=== PATIENT | female | born 1970 | race Caucasian/White ===

== ENCOUNTER 2018-01-16 06:18 | Inpatient (IN) ==
[2018-01-16] MEDS ORDERED: ceFAZolin 2 GM Premix Inj 2 GM/50 ML PIGGYBACK IV.SIG PRN (06:42)
[2018-01-16] MEDS ORDERED: Citric Acid/Sodium Citrate Liq 30 ML UDC PO SCH ×2 (06:45)
--- NOTE | 2018-01-16 06:52 | P.OBGPN ---
queried PDMP and reviewed report
[2018-01-16] MEDS ORDERED: ceFAZolin 2 GM Premix Inj 2 GM/50 ML PIGGYBACK IV.SIG SCH (07:00)
[2018-01-16 07:12] LABS: Baso % (Auto) 0.2 % (0.0-2.0); Eos # (Auto) 0.1 th/mm3 (0.0-0.4); Eos % (Auto) 0.7 % (0.0-4.0); Hematocrit 33.2 % (35.0-46.0); Hemoglobin 11.5 gm/dL (11.6-15.3); Lymph # (Auto) 1.3 th/mm3 (1.0-4.8); Mean Corpuscular HGB Conc 34.7 % (32.0-36.0); Mean Corpuscular Hemoglobin 31.8 pg (27.0-34.0); Mean Corpuscular Volume 91.7 fL (80.0-100.0); Mean Platelet Volume 7.3 fL (7.0-11.0); Mono # (Auto) 0.9 th/mm3 (0.0-0.9); Neut # (Auto) 7.7 th/mm3 (1.8-7.7); Neut % (Auto) 77.1 % (16.0-70.0); Platelet Count 307 th/mm3 (150-450); Red Blood Count 3.62 mil/mm3 (4.00-5.30); Red Cell Distribution Width 15.3 % (11.6-17.2)
[2018-01-16 07:16] LABS: Bacteria,Urine Occasional /hpf; Bilirubin,Urine Negative (Negative); Color,Urine Amber (Yellw/Straw); Glucose,Urine (UA) Negative (Negative); Leukocyte Esterase,Urine Moderate (Negative); Mucus,Urine Few /lpf (Occasional); Nitrite,Urine Negative (Negative); Specific Gravity,Urine 1.023 (1.002-1.035); Squamous Epithelial Cell,Urine 30 /hpf (0-5)
[2018-01-16 07:17] LABS: Amphetamine Screen,Urine Neg (Neg); Barbiturate Screen,Urine Neg (Neg); Cannabinoid Screen,Urine Neg (Neg); Clarity,Urine Hazy (Clear); Cocaine Screen,Urine Neg (Neg)
[2018-01-16 07:24] LABS: Opiate Screen,Urine Neg (Neg)
[2018-01-16 07:32] LABS: Alanine Aminotransferase 15 U/L (10-53); Albumin 2.4 g/dL (3.4-5.0); Anion Gap 11 meq/L (5-15); Aspartate Aminotransferase 17 U/L (15-37); Blood Urea Nitrogen 10 mg/dL (7-18); Calcium 8.4 mg/dL (8.5-10.1); Carbon Dioxide 20.3 meq/L (21.0-32.0); Chloride 108 meq/L (98-107); Glomerular Filtration Rate 88 mL/min (>89); Glucose,Random 110 mg/dL (74-106); Potassium 4.2 meq/L (3.5-5.1); Sodium 139 meq/L (136-145)
[2018-01-16 07:34] LABS: Alkaline Phosphatase 120 U/L (45-117); Total Protein 7.2 g/dL (6.4-8.2)
[2018-01-16] MEDS ORDERED: Morphine Sulfate PF Inj 5 MG/10 ML Ampul ONE (07:40)
--- NOTE | 2018-01-16 08:03 | P.OP ---
Date of procedure: 01/16/18 Surgeon: Anthony Siegel MD Operation and Findings: Preoperative diagnosis: 1. Intrauterine at 37 weeks 0 days 2. Chronic hypertension with superimposed preeclampsia 3. History of multiple myomectomies 4. Advanced maternal age 5. Hypothyroidism Postop diagnosis 1. Same as above status post primary Procedure 1. Primary low transverse section Surgeon Dr. Anthony Siegel Right Of Way Maintenance Supervisor: [place] labor and delivery scrub staff Findings: 1. Viable male at 0829, Apgars 8 and 9, weight 3125 g. 2. Intact placenta 3 vessel cord 0830 3. No intra-abdominal adhesions, normal appearing uterus, small atrophic left ovary but otherwise normal, normal left fallopian tube, right ovary somewhat enlarged but normal-appearing, normal right fallopian tube. Anesthesia: Spinal Specimen: Placenta to disposal Estimated blood loss: 500 cc Fluid replacement: 1800 cc lactated Ringer's and Pitocin Urine output: 100 cc clear DVT prophylaxis: Sequential compression devices throughout the case Antibiotics: 2 g Ancef preoperatively Counts: correct x2 Time out done: yes Disposition: Stable to PACU then Indications: Patient is a 48-year-old who was diagnosed with superimposed preeclampsia earlier this week based on her history of myomectomies she was dispositioned for a . Description of procedure: The patient was taken to the operating room and after spinal anesthesia was performed she was positioned and supine position with arms out in a left lateral tilt, the abdomen was prepped and draped in sterile fashion, a Pfannenstiel incision was made and carried down sharply to the fascia which was nicked on either side of the midline, this was extended bilaterally, the fascia was elevated superiorly and inferiorly and the rectus muscles were sharply dissected off the overlying fascia, the peritoneum was entered digitally and retracted laterally. A bladder flap was developed with Metzenbaum scissors at the lower uterine segment, the hysterotomy was made in the lower uterine segment with a scalpel in a curvilinear fashion, it was extended cephalad-caudad manner, I inserted my hand into the hysterotomy and the head was elevated to the hysterotomy and with fundal pressure was delivered. With gentle downward and upward guidance the anterior and posterior shoulder was delivered, followed by the torso and lower extremities with ease, the infant had spontaneous cry the cord was clamped and cut, the was handed off to nursing staff after delayed cord clamping was allowed. Pitocin was bolused and with uterine massage and cord traction the placenta was delivered, uterus was cleared of clot and debris, the uterus was exteriorized and the hysterotomy was closed with 2 layers, first with 0 locking Vicryl, and the second with imbricating 0 Vicryl. The abdomen and hysterotomy were irrigated , inspected, and found to be hemostatic. The rectus muscles were loosely reapproximated with interrupted 0 chromic. The fascia was closed from left to right with 0 running delayed absorbable suture. The subcutaneous tissue was irrigated, inspected, hemostasis was appreciated, the space was closed with running 2-0 Monocryl. The skin was closed with 3-0 Monocryl in a subcuticular fashion and then a dressing was applied and the patient tolerated procedure well was transferred to PACU.
[2018-01-16] MEDS ORDERED: Non-Formulary Drug (Levothyroxine [Levothyroxine] 137 MCG) PO SCH (09:00)
[2018-01-16] MEDS ORDERED: Acetaminophen 325 MG Tablet PO PRN (09:25)
[2018-01-16] MEDS ORDERED: Morphine Sulfate Inj 8 MG/ML Vial IV.PUSH PRN (09:25)
[2018-01-16] MEDS ORDERED: Oxytocin 30 Units/500ml Premix 30 UNITS/500 ML BAG IV.SIG ONE (09:25)
[2018-01-16] MEDS ORDERED: Ketorolac Inj 30 MG/ML (IVP) Vial IV.PUSH ONE ×2 (10:00→11:00)
[2018-01-16] MEDS ORDERED: Oxytocin 30 Units/500ml Premix 30 UNITS/500 ML BAG ONE (10:21)
[2018-01-16] MEDS: Prenatal Vit/Ca/Iron/Folic Acid Tablet PO SCH (10:35)
[2018-01-16] MEDS: Levothyroxine 112 MCG Tablet PO SCH (10:35)
[2018-01-16] MEDS ORDERED: Naloxone Inj 0.4 MG/ML Vial IV.PUSH PRN (11:36)
[2018-01-16] MEDS ORDERED: Oxytocin 30 Units/500ml Premix 30 UNITS/500 ML BAG IV.SIG PRN (14:25)
[2018-01-16] MEDS: Ketorolac Inj 30 MG/ML (IVP) Vial IV.PUSH SCH ×2 (17:23→23:00)
[2018-01-17] MEDS: Ketorolac Inj 30 MG/ML (IVP) Vial IV.PUSH SCH ×2 (05:15→12:13)
[2018-01-17 05:22] LABS: Baso % (Auto) 0.4 % (0.0-2.0); Eos # (Auto) 0.1 th/mm3 (0.0-0.4); Eos % (Auto) 0.5 % (0.0-4.0); Hematocrit 27.8 % (35.0-46.0); Hemoglobin 9.7 gm/dL (11.6-15.3); Lymph # (Auto) 1.8 th/mm3 (1.0-4.8); Lymph % (Auto) 14.5 % (9.0-44.0); Mean Corpuscular HGB Conc 34.9 % (32.0-36.0); Mean Corpuscular Volume 91.8 fL (80.0-100.0); Mean Platelet Volume 7.2 fL (7.0-11.0); Mono # (Auto) 0.9 th/mm3 (0.0-0.9); Neut # (Auto) 9.9 th/mm3 (1.8-7.7); Neut % (Auto) 77.6 % (16.0-70.0); Platelet Count 294 th/mm3 (150-450); Red Blood Count 3.03 mil/mm3 (4.00-5.30); Red Cell Distribution Width 15.2 % (11.6-17.2); White Blood Count 12.8 th/mm3 (4.0-11.0)
[2018-01-17] MEDS: Levothyroxine 112 MCG Tablet PO SCH (06:12)
--- NOTE | 2018-01-17 08:11 | P.PNOB ---
Subjective Post op day: 1 Interval history: Pain well controlled w meds. Passed some flatus. Patricia po. Voided already. Starting to ambulated. Objective Vital Signs/I&O: Vital Signs 01/16/18 09:28 01/16/18 09:45 01/16/18 10:00 Temperature Pulse Rate 84 77 78 Respiratory Rate 18 Blood Pressure 112/64 128/68 116/63 01/16/18 10:15 01/16/18 10:30 01/16/18 11:00 Temperature Pulse Rate 74 72 79 Respiratory Rate 18 Blood Pressure 129/67 140/80 142/92 H 01/16/18 19:41 01/16/18 23:42 01/17/18 04:00 Temperature 97.9 F 98.3 F 98.3 F Pulse Rate 73 65 67 Respiratory Rate 18 Blood Pressure 136/77 135/71 112/65 Intake & Output 01/16/18 01/17/18 01/17/18 18:59 06:59 18:59 Weight 99 kg Other: Weight On Admission 99 kg Result Diagrams: 01/17/18 05:03 01/16/18 06:55 Objective Remarks: GENERAL: Well-nourished, well-developed patient. CARDIOVASCULAR: Regular rate and rhythm without murmurs, gallops, or rubs. RESPIRATORY: Breath sounds equal bilaterally. No accessory muscle use. ABDOMEN/GI: Abdomen soft, non-tender, bowel sounds present. Incision: Clean, dry and intact. Fundus: Firm, non-tender at umbilicus. GENITOURINARY: Light to moderate bleeding. EXTREMITIES: No cyanosis or edema, non-tender, without signs of DVT. Medications and IVs: Active Medications Acetaminophen (Tylenol) 650 mg PO Q6H PRN PRN Reason: PAIN SCALE 1 TO 2 Citric Acid/Sodium Citrate (Sodium Citrate/Citric Acid Liq) 30 ml PO MOLASSES AND CARAMEL OPERATOR [facility] Stop: 01/20/18 06:44 Last Admin: 01/16/18 07:55 Dose: 30 ml Diphenhydramine HCl (Benadryl) 50 mg PO Q6H PRN PRN Reason: MILD TO MODERATE ITCHING Stop: 01/17/18 08:10 Diphenhydramine HCl (Benadryl Inj) 25 mg IV.PUSH Q6H PRN PRN Reason: MILD TO MODERATE ITCHING Stop: 01/17/18 08:10 Diphtheria/Pertussis/Tetanus Vacc (Boostrix Vaccine Inj) 0.5 ml IM .ONCE ONE Stop: 01/17/18 16:01 Lactated Ringer's (Lr 1000 Ml Inj) 1,000 mls @ 150 mls/hr IV.CONT .Q6H40M ON LICENSE OF [facility] Last Admin: 01/16/18 07:54 Dose: 150 mls/hr Lactated Ringer's (Lr 1000 Ml Inj) 1,000 mls @ 100 mls/hr IV.CONT .Q10H ON LICENSE OF [facility] Stop: 01/17/18 10:24 Oxytocin (Pitocin 30 Units/Ns 500 Ml Premix) 30 units in 500 mls @ 100 mls/hr IV.SIG UNSCH PRN PRN Reason: Heavy bleeding Ibuprofen (Motrin) 800 mg PO Q8H PRN PRN Reason: cramping Ketorolac Tromethamine (Toradol Inj) 15 mg IV.PUSH Q6H ON LICENSE OF [facility] Stop: 01/17/18 16:59 Last Admin: 01/17/18 05:15 Dose: 15 mg Levothyroxine Sodium (Synthroid) 112 mcg PO DAILY@0600 ON LICENSE OF [facility] Last Admin: 01/17/18 06:12 Dose: 112 mcg Levothyroxine Sodium (Synthroid) 25 mcg PO DAILY@0600 ON LICENSE OF [facility] Last Admin: 01/17/18 06:12 Dose: 25 mcg Measles/Mumps/Rubella Vaccine Live (M-M-R Ii Vaccine Inj) 0.5 ml SQ .ONCE ONE Stop: 01/17/18 16:01 Miscellaneous Information (Misc Nursing Information) 1 each OTHER UNSCH PRN PRN Reason: SEE LABEL COMMENTS Stop: 01/17/18 08:10 Miscellaneous Information (Misc Nursing Information) 1 each OTHER UNSCH PRN PRN Reason: SEE LABEL COMMENTS Stop: 01/17/18 08:10 Morphine Sulfate (Morphine Inj) 5 mg IV.PUSH Q4H PRN PRN Reason: BREAKTHROUGH PAIN Naloxone HCl (Narcan Inj) 0.4 mg IV.PUSH UNSCH PRN PRN Reason: SEE LABEL COMMENTS Stop: 01/17/18 08:10 Ondansetron HCl (Zofran Odt) 4 mg PO Q4H PRN PRN Reason: NAUSEA Oxycodone/Acetaminophen (Percocet 5/325 Mg) 1 tab PO Q4H PRN PRN Reason: PAIN SCALE 3 TO 5 Oxycodone/Acetaminophen (Percocet 5/325 Mg) 2 tab PO Q4H PRN PRN Reason: PAIN SCALE 6 TO 10 Vit/Calcium/Iron/Folic Ac (Stuartnatal Plus 3) 1 tab PO DAILY ON LICENSE OF [facility] Last Admin: 01/16/18 10:35 Dose: Not Given Prochlorperazine Edisylate (Compazine Inj) 8 mg IV.PUSH Q8H PRN PRN Reason: NAUSEA OR VOMITING Last Admin: 01/16/18 12:25 Dose: 8 mg Senna/Docusate Sodium (Sachi-Colace) 2 tab PO Q12H PRN PRN Reason: CONSTIPATION Sodium Chloride (Ns Flush) 2 ml IV.FLUSH BID ON LICENSE OF [facility] Last Admin: 01/17/18 05:13 Dose: Not Given Sodium Chloride (Ns Flush) 2 ml IV.FLUSH PRN PRN PRN Reason: FLUSH AFTER USING IV ACCESS Last Admin: 01/17/18 05:16 Dose: 2 ml Assessment and Plan - Diagnosis (1) delivery delivered Code(s): O82 - Encounter for delivery without indication Status: Acute - Plan Discharge Planning: pod1 cd for prior myomectomy and ore-e without severe features mild elevation to normal bp postop hgb 9.7, normal vitals continue routine care dispo home ppd 2 or 3
[2018-01-17] MEDS: Prenatal Vit/Ca/Iron/Folic Acid Tablet PO SCH (09:23)
[2018-01-17] MEDS ORDERED: Diphtheria/Tetanus/Pertussis Vaccine Inj 0.5 ML Syringe IM ONE (16:00)
[2018-01-17] MEDS ORDERED: Measles/Mumps/Rubella Vaccine Inj 0.5 ML Vial SQ ONE (16:00)
[2018-01-17] MEDS: Senna/Docusate Sodium 8.6/50 MG Tablet PO PRN (21:05)
[2018-01-18] MEDS: Levothyroxine 112 MCG Tablet PO SCH (06:57)
--- NOTE | 2018-01-18 07:50 | P.PNOB ---
Subjective Post op day: 2 Interval history: s/p primary LTCD for hx of myomectomy as well as hx of preeclampsia at 37 wks; doing well, , pain improving Objective Vital Signs/I&O: Vital Signs 01/17/18 18:25 01/17/18 20:30 01/18/18 07:39 Temperature 98.1 F 97.6 F Pulse Rate 75 78 70 Respiratory Rate 18 18 16 Blood Pressure 125/78 116/69 121/77 Result Diagrams: 01/17/18 05:03 01/16/18 06:55 Objective Remarks: GENERAL: Well-nourished, well-developed patient. CARDIOVASCULAR: Regular rate and rhythm without murmurs, gallops, or rubs. RESPIRATORY: Breath sounds equal bilaterally. No accessory muscle use. ABDOMEN/GI: Abdomen soft, non-tender, bowel sounds present. Incision: Clean, dry and intact. steri-strips in place. Fundus: Firm, non-tender at umbilicus. GENITOURINARY: Light bleeding. EXTREMITIES: No cyanosis or edema, non-tender, without signs of DVT. Medications and IVs: Active Medications Acetaminophen (Tylenol) 650 mg PO Q6H PRN PRN Reason: PAIN SCALE 1 TO 2 Citric Acid/Sodium Citrate (Sodium Citrate/Citric Acid Liq) 30 ml PO OUTSIDE MACHINIST APPRENTICE [facility] Stop: 01/20/18 06:44 Last Admin: 01/16/18 07:55 Dose: 30 ml Lactated Ringer's (Lr 1000 Ml Inj) 1,000 mls @ 150 mls/hr IV.CONT .Q6H40M [facility] Last Admin: 01/17/18 08:53 Dose: Not Given Oxytocin (Pitocin 30 Units/Ns 500 Ml Premix) 30 units in 500 mls @ 100 mls/hr IV.SIG UNSCH PRN PRN Reason: Heavy bleeding Ibuprofen (Motrin) 800 mg PO Q8H PRN PRN Reason: cramping Last Admin: 01/18/18 05:01 Dose: 800 mg Levothyroxine Sodium (Synthroid) 112 mcg PO DAILY@0600 [facility] Last Admin: 01/18/18 06:57 Dose: 112 mcg Levothyroxine Sodium (Synthroid) 25 mcg PO DAILY@0600 [facility] Last Admin: 01/18/18 06:57 Dose: 25 mcg Morphine Sulfate (Morphine Inj) 5 mg IV.PUSH Q4H PRN PRN Reason: BREAKTHROUGH PAIN Ondansetron HCl (Zofran Odt) 4 mg PO Q4H PRN PRN Reason: NAUSEA Oxycodone/Acetaminophen (Percocet 5/325 Mg) 1 tab PO Q4H PRN PRN Reason: PAIN SCALE 3 TO 5 Last Admin: 01/18/18 05:01 Dose: 1 tab Oxycodone/Acetaminophen (Percocet 5/325 Mg) 2 tab PO Q4H PRN PRN Reason: PAIN SCALE 6 TO 10 Vit/Calcium/Iron/Folic Ac (Stuartnatal Plus 3) 1 tab PO DAILY [facility] Last Admin: 01/17/18 09:23 Dose: 1 tab Prochlorperazine Edisylate (Compazine Inj) 8 mg IV.PUSH Q8H PRN PRN Reason: NAUSEA OR VOMITING Last Admin: 01/16/18 12:25 Dose: 8 mg Senna/Docusate Sodium (Sachi-Colace) 2 tab PO Q12H PRN PRN Reason: CONSTIPATION Last Admin: 01/17/18 21:05 Dose: 2 tab Sodium Chloride (Ns Flush) 2 ml IV.FLUSH BID [facility] Last Admin: 01/18/18 05:16 Dose: Not Given Sodium Chloride (Ns Flush) 2 ml IV.FLUSH PRN PRN PRN Reason: FLUSH AFTER USING IV ACCESS Last Admin: 01/17/18 05:16 Dose: 2 ml Assessment and Plan - Diagnosis (1) delivery delivered Code(s): O82 - Encounter for delivery without indication Status: Acute - Plan pod2 cd for prior myomectomy and pre-e without severe features BPs mild to normal range since delivery; no si/sx of severity postop hgb 9.7, normal vitals, asymptomatic continue routine care infant for circ prior to d/c plan discharge tmrw 01/19/18 Discharge Planning: routine
--- NOTE | 2018-01-18 08:48 | MH ---
cc: Anthony Siegel MD DATE OF ADMISSION: 01/16/2018 CHIEF COMPLAINT: Scheduled primary . HISTORY OF PRESENT ILLNESS: This patient is a 48-year-old, G3, P0-0-2-0, who will be at 37 weeks and 0 days by IVF dating with estimated due date of 02/06/2018, presenting for a scheduled primary secondary to new diagnosis of superimposed preeclampsia and a history of a myomectomy. The patient's has been complicated by advanced maternal age. To note, she was an IVF with a donor egg. She had a negative quad screen and normal anatomy, history of myomectomy x2, history of chronic hypertension, off the medication throughout her , hypothyroidism, and rubella and varicella nonimmune status. PAST MEDICAL HISTORY: 1. Hypothyroidism. 2. Chronic hypertension. ALLERGIES: NO KNOWN DRUG ALLERGIES. MEDICATIONS: 1. Aspirin 81 mg daily. 2. Synthroid 137 mcg daily. 3. vitamins and iron. PAST SURGICAL HISTORY: 1. Appendectomy. 2. 03/17/16: Laparoscopic myomectomy (multiple, anterior and posterior) and vaginal cervical myomectomy. Right ovarian endometrium drainage and fulguration. Right oophorpexy Bilateral ureteral lysis. Lysis of adhesions. - Findings: upper abdomen normal, bowel adhesions to posterior uterus, ovaries adhered to pelvic side wall, OBSTETRIC HISTORY: 1. In 2017, right ectopic managed with methotrexate: 2. In 2001, spontaneous at 5 weeks managed expectantly GYNECOLOGIC HISTORY: Unremarkable. FAMILY HISTORY: No pertinent positive family history. PHYSICAL EXAMINATION: VITAL SIGNS: Based on encounter from 01/12/2018, weight 220 pounds, blood pressure 146/80. GENERAL: Alert and oriented x3, resting comfortably in bed. CARDIAC: Regular rate and rhythm. No murmurs, rubs or gallops. ABDOMEN: Soft, gravid, nontender. PULMONARY: Lungs are clear to auscultation bilaterally. GENITOURINARY: Deferred. EXTREMITIES: No clubbing, cyanosis or edema labs Please see records. LABORATORIES: Please see records. ASSESSMENT AND PLAN: The patient is a 48-year-old, G3, P0-0-2-0, who will be at 37 weeks and 0 days with estimated due date of 02/06/2018, for primary . 1. Intrauterine . Should be placed on monitoring upon presentation. Estimated weight on 01/05/2018 was 2632 grams 58th percentile, has a posterior placenta, a male fetus. She desires to take the placenta home and delay cord clamping. 2. CHTN with superimposed Preeclampsia without severe features. The patient had been hypertensive prior to , but off medications since 2016. She had no baseline 24-hour urine for comparison. However, on 01/12/2018 she had elevated blood pressures and a protein-creatinine ratio greater than 0.3, her HELLP labs were normal, and she had no signs or symptoms of severe disease. We discussed options for delivery and recommended delivery at 37 weeks. Will recollect HELLP labs at the time of presentation. 3. History of myomectomy x2. The patient will be for primary . Will type and cross x2. 4. Advanced maternal age. She was in vitro fertilization with a donor egg of a 27-year-old female, quad screen and anatomy were all normal. 5. Hypothyroidism. Most recent TSH normal on 01/13/2018. Continue home Synthroid and will adjust . 6. Rubella and varicella nonimmune. Recommend vaccines . MD JOSSIE Ling/johny , 08:03 AM , 08:13 AM MTDD
[2018-01-18] MEDS: Prenatal Vit/Ca/Iron/Folic Acid Tablet PO SCH (10:17)
[2018-01-18] MEDS: Senna/Docusate Sodium 8.6/50 MG Tablet PO PRN (21:20)
[2018-01-19] MEDS: Levothyroxine 112 MCG Tablet PO SCH (06:12)
--- NOTE | 2018-01-19 08:19 | P.PNOB ---
Subjective Post op day: 3 Interval history: milk is coming in reviewed anemia states incision healing well (did not want me to check) questions answered Objective Vital Signs/I&O: Vital Signs 01/18/18 20:00 Temperature 98.0 F Pulse Rate 81 Respiratory Rate 18 Blood Pressure 139/75 Result Diagrams: 01/17/18 05:03 01/16/18 06:55 Objective Remarks: GENERAL: Well-nourished, well-developed patient. CARDIOVASCULAR: Regular rate and rhythm without murmurs, gallops, or rubs. RESPIRATORY: Breath sounds equal bilaterally. No accessory muscle use. ABDOMEN/GI: Abdomen soft, non-tender, bowel sounds present. Incision: Clean, dry and intact. Fundus: Firm, non-tender at umbilicus. GENITOURINARY: Light to moderate bleeding. EXTREMITIES: No cyanosis or edema, non-tender, without signs of DVT. Medications and IVs: Active Medications Acetaminophen (Tylenol) 650 mg PO Q6H PRN PRN Reason: PAIN SCALE 1 TO 2 Citric Acid/Sodium Citrate (Sodium Citrate/Citric Acid Liq) 30 ml PO ROLL SLICING MACHINE TENDER [facility] Stop: 01/20/18 06:44 Last Admin: 01/16/18 07:55 Dose: 30 ml Lactated Ringer's (Lr 1000 Ml Inj) 1,000 mls @ 150 mls/hr IV.CONT .Q6H40M [facility] Last Admin: 01/17/18 08:53 Dose: Not Given Oxytocin (Pitocin 30 Units/Ns 500 Ml Premix) 30 units in 500 mls @ 100 mls/hr IV.SIG UNSCH PRN PRN Reason: Heavy bleeding Ibuprofen (Motrin) 800 mg PO Q8H PRN PRN Reason: cramping Last Admin: 01/19/18 05:00 Dose: 800 mg Levothyroxine Sodium (Synthroid) 112 mcg PO DAILY@0600 [facility] Last Admin: 01/19/18 06:12 Dose: 112 mcg Levothyroxine Sodium (Synthroid) 25 mcg PO DAILY@0600 [facility] Last Admin: 01/19/18 06:13 Dose: 25 mcg Morphine Sulfate (Morphine Inj) 5 mg IV.PUSH Q4H PRN PRN Reason: BREAKTHROUGH PAIN Ondansetron HCl (Zofran Odt) 4 mg PO Q4H PRN PRN Reason: NAUSEA Oxycodone/Acetaminophen (Percocet 5/325 Mg) 1 tab PO Q4H PRN PRN Reason: PAIN SCALE 3 TO 5 Last Admin: 01/18/18 21:13 Dose: 1 tab Oxycodone/Acetaminophen (Percocet 5/325 Mg) 2 tab PO Q4H PRN PRN Reason: PAIN SCALE 6 TO 10 Vit/Calcium/Iron/Folic Ac (Stuartnatal Plus 3) 1 tab PO DAILY [facility] Last Admin: 01/18/18 10:17 Dose: 1 tab Prochlorperazine Edisylate (Compazine Inj) 8 mg IV.PUSH Q8H PRN PRN Reason: NAUSEA OR VOMITING Last Admin: 01/16/18 12:25 Dose: 8 mg Senna/Docusate Sodium (Sachi-Colace) 2 tab PO Q12H PRN PRN Reason: CONSTIPATION Last Admin: 01/18/18 21:20 Dose: 2 tab Sodium Chloride (Ns Flush) 2 ml IV.FLUSH BID [facility] Last Admin: 01/18/18 10:18 Dose: Not Given Sodium Chloride (Ns Flush) 2 ml IV.FLUSH PRN PRN PRN Reason: FLUSH AFTER USING IV ACCESS Last Admin: 01/17/18 05:16 Dose: 2 ml Assessment and Plan - Diagnosis (1) delivery delivered Code(s): O82 - Encounter for delivery without indication Status: Acute - Plan pod2 cd for prior myomectomy and pre-e without severe features BPs mild to normal range since delivery; no si/sx of severity postop hgb 9.7, normal vitals, asymptomatic continue routine care infant for circ prior to d/c plan discharge tmrw 01/19/18 POD 3 infant has circumcision mom and dad ready for discharge reviewed iron and PNV discussed watching for PPD, bleeding, DVT and post pre eclampsia RTO 1 week or prn Discharge Planning: routine
[2018-01-19 08:42] VITALS: BP 148/83
[2018-01-19 08:43] VITALS: PULSE 68; RESP 20; TEMP 98.1
[2018-01-19] MEDS: Prenatal Vit/Ca/Iron/Folic Acid Tablet PO SCH (18:00)
== END 2018-01-19 22:23 | disposition home or self-care (01) ==
LOC: H2E 06:18 → H1EA 10:54
PROVIDERS: ADMIT Obstetrics & Gynecology; ATTEND Obstetrics & Gynecology